=== PATIENT | female | born 1990 | race African-American/Black ===

== ENCOUNTER 2016-07-03 10:02 | Emergency (ER) | payer OTHER ==
[~2016-07-03] VITALS: Ht 170.2 cm; Wt 64.0 kg
[2016-07-03 10:05] VITALS: BP 135/74; PULSE 75; RESP 15; TEMP 98.1; O2SAT 98
[2016-07-03 10:13] VITALS: BP 158/77; PULSE 114; RESP 18; O2SAT 100
[2016-07-03] MEDS ORDERED: SODIUM CHLOR 0.9% 1000 ML INJ 1,000 ML IV ONE (10:28)
--- NOTE | 2016-07-03 10:35 | PD ---
HPI Chief Complaint: Abdominal Pain Time Seen by Provider: 10:20 Travel History International Travel<30 days: No Contact w/Intl Traveler<30days: No Traveled to known affect area: No History of Present Illness HPI The patient is a 26-year-old Eli female who presents emergency department for pelvic pain. The patient states she has a history of HPV with previous colposcopy, was advised by her application security engineer, who resides in [place], [place], that if there was any abnormalities to come to the emergency department. The patient notes a one and a half month history of intermittent crampy lower abdominal pain. The patient's last menstrual cycle was June 16, she denies . She denies any abnormal vaginal discharge, bleeding, dysuria, frequency, or urgency. She does complain of intermittent lower abdominal pain. She denies any nausea currently, but occasionally does have nausea with her pain. She denies any change in bowel habits or diarrhea. Symptoms are mild to moderate, no known alleviating or exacerbating factors. PFSH Past Medical History Genitourinary: Yes (HPV) ?: Not Social History Alcohol Use: Yes (on occasion) Tobacco Use: No Substance Use: Yes (THC every week) Allergies-Medications (Allergen,Severity, Reaction): Coded Allergies: No Known Allergies (Unverified , 07/03/16) Review of Systems Except as stated in HPI: all other systems reviewed are Neg General / Constitutional: No: Fever, Chills Cardiovascular: No: Chest Pain or Discomfort Respiratory: No: Shortness of Breath Gastrointestinal: Positive: Nausea, No: Vomiting, Diarrhea, Abdominal Pain Genitourinary: Positive: Pelvic Pain, No: Urgency, Frequency, Dysuria, Hematuria, Discharge, Vaginal Bleeding Physical Exam Narrative GENERAL: Awake, alert, pleasant 26-year-old female who appears her stated age and is in no acute respiratory distress. SKIN: Warm and dry. HEAD: Atraumatic. Normocephalic. EYES: No injection or drainage. ENT: No nasal bleeding or discharge. Mucous membranes pink and moist. NECK: Trachea midline. No JVD. GASTROINTESTINAL: Abdomen soft, non-tender, nondistended. No rebound tenderness. Back: No CVA tenderness. Genitourinary: The exam was performed in a presence of a female nurse. External examination reveals mild edema of the right labia minora. No palpable Bartholin's cyst. Speculum examination reveals scant white discharge in the vaginal vault. Cervix is closed. No cervical motion tenderness. No adnexal tenderness. MUSCULOSKELETAL: No obvious deformities. No clubbing. No cyanosis. No edema. NEUROLOGICAL: Awake and alert. No obvious cranial nerve deficits. Motor grossly within normal limits. Normal speech. PSYCHIATRIC: Appropriate mood and affect; insight and judgment normal. Data Data Last Documented VS Vital Signs Date Time Temp Pulse Resp B/P Pulse Ox O2 Delivery O2 Flow Rate FiO2 07/03/16 10:17 18 07/03/16 10:13 114 158/77 100 07/03/16 10:05 98.1 Orders Gc And Chlamydia Pcr (07/03/16 10:28) Wet Prep Profile (07/03/16 10:28) Urinalysis - C+S If Indicated (07/03/16 10:28) Sodium Chlor 0.9% 1000 Ml Inj (Ns 1000 M (07/03/16 10:28) Ed Urine Pregnancytest Poc (07/03/16 10:28) Labs Laboratory Tests Test 07/03/16 07/03/16 10:30 12:00 Urine Color LIGHT-YELLOW Urine Turbidity CLEAR Urine pH 5.5 Urine Specific [place] 1.018 Urine Protein NEG mg/dL Urine Glucose (UA) NEG mg/dL Urine Ketones NEG mg/dL Urine Occult Blood NEG Urine Nitrite NEG Urine Bilirubin NEG Urine Urobilinogen LESS THAN 2.0 MG/DL Urine Leukocyte Esterase TRACE Urine RBC LESS THAN 1 /hpf Urine WBC LESS THAN 1 /hpf Urine Squamous Epithelial 3 /hpf Cells Urine Bacteria RARE /hpf Urine Hyaline Casts 1 /lpf Urine Mucus FEW /lpf Microscopic Urinalysis Comment CULT NOT INDICATED Clue Cells (Wet Prep) NONE SEEN Vaginal Trichomonas (Wet Prep) NONE SEEN Vaginal Yeast (Wet Prep) NONE SEEN MDM Medical Decision Making Medical Screen Exam Complete: Yes Emergency Medical Condition: Yes Medical Record Reviewed: Yes Differential Diagnosis Differential diagnosis includes PID, cervicitis, vaginitis, UTI, ovarian cyst, pelvic pain NOS. Narrative Course UA was sent to lab and bedside UA test was obtained. UA test was negative. Pelvic exam was completed, wet prep was sent to lab. Wet prep was unremarkable. The patient is stable for outpatient follow-up with her application security engineer. Return if symptoms worsen or progress. Diagnosis Primary Impression: Pelvic pain Patient Instructions: General Instructions Additional Instructions: Please provide the patient a copy of her labs and UA results at discharge. Follow-up with her application security engineer. Return sooner if symptoms worsen or progress. Disposition: 01 DISCHARGE HOME Condition: Stable Maximus Burroughs MD Jul 03, 2016 10:35
[2016-07-03 10:53] LABS: BACTERIA, URINE RARE /hpf; BLOOD, URINE NEG (NEG); COMMENT (UR) CULT NOT INDICATED; CULTURE IF INDICATED CULT NOT INDICATED; GLUCOSE,URINE NEG (NEG); HYALINE CAST, URINE 1 /lpf (RARE); KETONE, URINE NEG (NEG); MUCUS URINE FEW /lpf (OCC); NITRITE,URINE NEG (NEG); PH, URINE 5.5 (5.0-8.5); SQUAMOUS EPITHELIAL CELL URINE 3 /hpf (0-5); URINE COLOR LIGHT-YELLOW (YELLW/STRAW)
[2016-07-03 12:59] VITALS: BP 132/67; TEMP 98.2
[2016-07-04 02:08] LABS: CHLAMYDIA PCR NOT DETECTED (NOT DETECT); NEISSERIA PCR NOT DETECTED (NOT DETECT)
== END 2016-07-03 13:00 | disposition home or self-care (01) ==
LOC: NEPE 10:02
DX: R10.2 Pelvic and perineal pain (principal)
CPT/HCPCS: 81001; 84703; 87210; 87491; 87591; 99284; J7030